=== PATIENT | male | born 1965 | race Caucasian/White ===

== ENCOUNTER 2020-02-27 18:26 | Inpatient (IN) | payer BC, OTHER ==
[~2020-02-27] VITALS: Ht 180.3 cm; Wt 123.8 kg
[2020-02-27 19:20] VITALS: BP_SYST 146
--- NOTE | 2020-02-27 19:20 | NUR ---
PT TO REMAIN IN TENT FOR EVALUATION DUE TO NO ER BEDS BEING AVAILABLE
--- NOTE | 2020-02-27 19:48 | NUR ---
DR. DIAZ TO TENT TO EVALUATE PT STATUS
[2020-02-27] MEDS ORDERED: KETOROLAC TROMETHAMINE 30 MG VIAL IM ONE (20:00)
--- NOTE | 2020-02-27 20:04 | NUR ---
PT MOVED TO FAST TRACK 2
[2020-02-27] MEDS ORDERED: KETOROLAC TROMETHAMINE 30 MG VIAL ONE (20:12)
--- NOTE | 2020-02-27 20:15 | NUR ---
LAB AT BEDSIDE TO DRAW LABS
[2020-02-27 20:36] LABS: BASOPHILS # (AUTO) 0.1 K/uL (0.0-0.2); BASOPHILS % (AUTO) 0.7 % (0.0-2.0); EOSINOPHILS # (AUTO) 0.5 K/uL (0.0-0.4); EOSINOPHILS % (AUTO) 3.7 % (0.0-4.0); HEMATOCRIT 43.5 % (36-54); HEMOGLOBIN 15.3 g/dL (14.0-18.0); LYMPHOCYTES # (AUTO) 1.8 K/uL (1.0-5.5); LYMPHOCYTES % (AUTO) 14.4 % (20.5-51.5); MEAN CORPUSCULAR HEMOGLOBIN 33 pg (27-31); MEAN CORPUSCULAR HGB CONC 35 % (32-36); MEAN CORPUSCULAR VOLUME 93 fL (79.0-98.0); MONOCYTES # (AUTO) 1.1 K/uL (0.0-1.0); NEUTROPHILS # (AUTO) 9.2 K/uL (1.8-7.7); NEUTROPHILS % (AUTO) 72.2 % (40.0-70.0); PLATELET COUNT (AUTO) 374 K/uL (130-430); RED BLOOD CELL COUNT(AUTO) 4.69 MIL/uL (4.2-6.2); RED CELL DISTRIBUTION WIDTH 13.1 % (9.0-15.0); WHITE BLOOD COUNT (AUTO) 12.7 K/uL (4.8-10.8)
[2020-02-27 21:01] LABS: CALCIUM 9.6 mg/dL (8.4-11.0); CREATININE 1.05 mg/dL (0.55-1.30); POTASSIUM 3.5 mmol/L (3.5-5.1)
[2020-02-27 21:07] LABS: TOTAL BILIRUBIN 3.3 mg/dL (0.0-1.0)
[2020-02-27] MEDS ORDERED: ONDANSETRON HCL 4 MG/2 ML VIAL IVP ONE (21:30)
[2020-02-27] MEDS ORDERED: NACL 0.9% 2,000 ML IV ONE (21:30)
[2020-02-27] MEDS ORDERED: NACL 0.9% 1,000 ML IV ONE (21:30)
[2020-02-27] MEDS ORDERED: MORPHINE 4 MG/ML INJ. SYRINGE IVP ONE (21:30)
[2020-02-27] MEDS ORDERED: cefTRIAXone 1 GM in D5W 50 ML IV ONE (21:45)
[2020-02-27] MEDS ORDERED: cefTRIAXone 1 GM VIAL ONE (22:05)
[2020-02-27] MEDS ORDERED: MORPHINE 4 MG/ML INJ. SYRINGE ONE (22:05)
[2020-02-27] MEDS ORDERED: D5NS 1,000 ML IV SCH (22:45)
--- NOTE | 2020-02-27 22:46 | NUR ---
Patient will be admitted to care of [facility]. Admitted to M/S unit. Will go to room 100A. Belongings list completed. Complete and up to date summary report printed. SBAR report to be given at bedside with opportunity for questions.
[2020-02-27 22:55] LABS: INR 0.9 (0.80-1.20); PROTHROMBIN TIME 9.5 SECS (9.5-12.5)
[2020-02-27] MEDS ORDERED: FAMO20TA8 PO (23:48)
[2020-02-27] MEDS ORDERED: IMIP25TA6 PO (23:48)
[2020-02-27] MEDS ORDERED: LEVO112T2 PO (23:48)
[2020-02-27] MEDS ORDERED: HYDR50TA3 PO (23:48)
[2020-02-27] MEDS ORDERED: LISI40TA4 PO (23:48)
[2020-02-28] MEDS ORDERED: D5/0.45 NS 1,000 ML IV SCH (00:30)
[2020-02-28] MEDS ORDERED: NALOXONE HCL 0.4 MG/ML AMP (NARCAN) IVP PRN (00:30)
[2020-02-28] MEDS ORDERED: MORPHINE 2 MG/ML INJ. SYRINGE IVP PRN (00:30)
[2020-02-28 01:00] VITALS: BP_SYST 133
--- NOTE | 2020-02-28 01:00 | NUR ---
pt.admit via er dept.report via telephone.pt.received in stable status.admit dx;pancreatitis.pt.received the administration morphine/zofran p/t arrival@unit.pt.presents v/s stable status values w/in normal limits.pt.oriented to room.pt.presents iv access lock. pt.had received the administration ns/rocephin b/cx drawn p/t to the administration of rocephin.diet status:npo.apprised pt.of the designation;npo;definition.pt.apprised of primary md;alicia,consult;gi;kenny.call light/telephone placed w/in access of the pt.
[2020-02-28] MEDS: FAMOTIDINE PF 20 MG/2 ML VIAL IVP SCH (03:00)
--- NOTE | 2020-02-28 03:00 | NUR ---
i have initiated the administration iv fluids per md.order:d5/45 ns the original order d5/ns was re-ordered per new constituents iv fluids.i have administered medication;pain.i have administered morphine;4mg ivp.to assess the efficacy of the pain medication per pain mgx protocol. Addendum: 02/28/20 at 1841 by Yury Forte RN iv fluids administered via gravity.no iv pump available.@this hour.
[2020-02-28] MEDS: MORPHINE 4 MG/ML INJ. SYRINGE IVP PRN ×2 (03:22→16:41)
[2020-02-28 04:00] VITALS: BP_SYST 128
--- NOTE | 2020-02-28 04:50 | NUR ---
CONSULTATION PAGED/CALLED Reason for Consultation: POSS CHOLECYSTITIS Person Who was Notified: ER PAGED DOCTOR YOON PER ER SUMMARY REPORT Consulting Physician: NELSON NETTLES Warehouse Distribution Specialist Specialty: SURGERY Ordering Physician: Parul SILVEIRA
--- NOTE | 2020-02-28 04:51 | NUR ---
CONSULTATION PAGED/CALLED Reason for Consultation: PANCREATITIS Person Who was Notified: DARIAN Consulting Physician: PINKY KWON IS [employer] Manager Consultant Specialty: Ordering Physician: Parul SILVEIRA
--- NOTE | 2020-02-28 06:00 | NUR ---
pt.assessed.pt.presents quiescent affect;calm,somnolent.per flacc pain mgx pt.absent facial grimaces/body posturing.iv fluids infusing via gravity.pt's arm re-positioned to FaCILiTAtE THe IV FLUiDS FLOw.PT.capable to re-position self/ambulate.call light/telephone w/in access of the pt.
[2020-02-28 08:00] VITALS: BP_SYST 133
--- NOTE | 2020-02-28 08:00 | NUR ---
A/Ox4,vss,resting well in bed,NPO except ice,no c/o pain or discomfort for now. IVF continue infusing,needs attended,call light & personal items within pt reach safety maintained.
--- NOTE | 2020-02-28 10:00 | NUR ---
came and seen pt for GI consult.
[2020-02-28 11:03] LABS: BASOPHILS # (AUTO) 0.1 K/uL (0.0-0.2); BASOPHILS % (AUTO) 0.7 % (0.0-2.0); EOSINOPHILS # (AUTO) 0.6 K/uL (0.0-0.4); EOSINOPHILS % (AUTO) 6.4 % (0.0-4.0); HEMATOCRIT 39.4 % (36-54); HEMOGLOBIN 13.6 g/dL (14.0-18.0); LYMPHOCYTES # (AUTO) 1.6 K/uL (1.0-5.5); LYMPHOCYTES % (AUTO) 17.2 % (20.5-51.5); MEAN CORPUSCULAR HEMOGLOBIN 32 pg (27-31); MEAN CORPUSCULAR HGB CONC 35 % (32-36); MEAN CORPUSCULAR VOLUME 94 fL (79.0-98.0); MONOCYTES # (AUTO) 0.8 K/uL (0.0-1.0); NEUTROPHILS # (AUTO) 6.3 K/uL (1.8-7.7); NEUTROPHILS % (AUTO) 66.7 % (40.0-70.0); PLATELET COUNT (AUTO) 288 K/uL (130-430); RED BLOOD CELL COUNT(AUTO) 4.21 MIL/uL (4.2-6.2); WHITE BLOOD COUNT (AUTO) 9.5 K/uL (4.8-10.8)
[2020-02-28 11:09] LABS: ALBUMIN 3.2 g/dL (3.4-4.8); CALCIUM 8.4 mg/dL (8.4-11.0); CREATININE 0.95 mg/dL (0.55-1.30); POTASSIUM 4.4 mmol/L (3.5-5.1); TOTAL BILIRUBIN 1.8 mg/dL (0.0-1.0)
--- NOTE | 2020-02-28 12:00 | NUR ---
pt c/o moderate pain in abdomen,give morphine 2 mg IV as prn order for moderate pain.
--- NOTE | 2020-02-28 14:00 | NUR ---
pt sleeping well in bed,IVF continue infusing,hourly rounds made,safety maintained.
--- NOTE | 2020-02-28 16:00 | NUR ---
vss,pt resting well in bed,c/o severe pain in abdomen,give morphine 4 mg IV as prn order informed pt of lap grecia in am and obtained consent signed by pt.chest Xray & EKG done per pre-op order
[2020-02-28] MEDS: LR 1,000 ML IV SCH ×2 (17:49→21:55)
--- NOTE | 2020-02-28 18:29 | NUR ---
pt sleeping well in bed,IVF continue infusing,offered ice chips upon requests no n/v.hourly rounds made,safety maintained.
[2020-02-28] MEDS ORDERED: KETOROLAC TROMETHAMINE 30 MG VIAL IM PRN (18:45)
[2020-02-28] MEDS: KETOROLAC TROMETHAMINE 30 MG VIAL IVP PRN (19:13)
--- NOTE | 2020-02-28 19:15 | NUR ---
OPENING NOTE REPORT RECEIVED FROM DAYSHIFT NURSE. PATIENT RECEIVED LYING IN BED, AWAKE, COMPLAINING OF PAIN, PRN MEDICATION WAS JUST GIVEN BY DAYSHIFT NURSE. NO SOB, BREATHING EVEN AND UNLABORED. IVF INFUSING WELL. IV SITE PATENT, NO SIGNS OF INFILTRATION OR INFECTION NOTED. CALL LIGHT WITH PATIENT. BED IS LOCKED AND AT LOWEST POSITION. WILL CONTINUE TO MONITOR.
[2020-02-28 20:00] VITALS: BP_SYST 130
--- NOTE | 2020-02-28 21:00 | NUR ---
ROUNDS PATIENT IN BED, NO SINGS OF DISCOMFORT NOTED. DENIES PAIN AT THIS TIME. CHEST RISE AND FALL EVEN BILATERALLY. IVF INFUSING WELL. CALL LIGHT WITH PATIENT. WILL CONTINUE TO MONITOR.
--- NOTE | 2020-02-28 23:00 | NUR ---
ROUNDS PATIENT ASLEEP AT THIS TIME. NO S/S OF ACUTE DISTRESS NOTED. BREATHING EVEN AND UNLABORED. CALL LIGHT WITH PATIENT. WILL CONTINUE TO MONITOR.
[2020-02-29] VITALS: BP_SYST 138
[2020-02-29] MEDS: LR 1,000 ML IV SCH ×4 (00:20→23:40)
[2020-02-29] MEDS: FAMOTIDINE PF 20 MG/2 ML VIAL IVP SCH (00:32)
--- NOTE | 2020-02-29 01:00 | NUR ---
ROUNDS PATIENT IN BED, SLEEPING COMFORTABLY AT THIS TIME. NO S/S OF ACUTE DISTRESS NOTED. BREATHING EVEN AND UNLABORED. IVF INFUSING WELL. CALL LIGHT WITH PATIENT. WILL CONTINUE TO MONITOR.
[2020-02-29] MEDS: KETOROLAC TROMETHAMINE 30 MG VIAL IVP PRN (05:13)
[2020-02-29] MEDS: ONDANSETRON HCL 4 MG/2 ML VIAL IVP PRN (05:26)
--- NOTE | 2020-02-29 06:34 | NUR ---
CLOSING NOTE PATIENT IN BED, ASLEEP AT THIS TIME. NO S/S OF ACUTE DISTRESS NOTED. BREATHING EVEN AND UNLABORED. IVF INFUSING WELL, IV SITE IS PATENT, NO SIGNS OF INFILTRATION OR INFECTION NOTED. ALL NEEDS MET THROUGHOUT SHIFT. FALL AND SAFETY PRECAUTIONS MAINTAINED THROUGHOUT SHIFT. WILL CONTINUE TO MONITOR UNTIL PATIENT CARE IS ENDORSED TO ONCOMING DAYSHIFT NURSE.
[2020-02-29 07:11] VITALS: BP_SYST 144
--- NOTE | 2020-02-29 08:15 | NUR ---
To OR for lap cholecystectomy pre operative checklist completed , endorsed to OR/RN
[2020-02-29] MEDS ORDERED: HYDROmorphone 1 MG INJ. 1 MG/ML AMPUL IM PRN (10:30)
[2020-02-29] MEDS ORDERED: HYDROcodone/ACETAMIN 5-325 MG TAB (NORCO/ VICODIN) PO PRN ×2 (10:30→13:45)
[2020-02-29 11:40] VITALS: BP_SYST 143
--- NOTE | 2020-02-29 11:40 | NUR ---
From PACU after laparoscopic cholecystectomy under GA , Patient awake but sleepy kept on 3 liters/nc vitals sign monitored , physical assessment done ., safety/fall precaution initiated,denies any pain.
[2020-02-29 11:54] LABS: BILIRUBIN,URINE 3+ (NEGATIVE); BLOOD, URINE NEGATIVE (NEGATIVE); CLARITY/URINE CLEAR (CLEAR); COLOR,URINE BROWN (YELLOW); GLUCOSE,URINE TRACE (NEGATIVE); KETONES,URINE TRACE (NEGATIVE); LEUKOCYTE ESTERASE ,URINE NEGATIVE (NEGATIVE); NITRITE, URINE NEGATIVE (NEGATIVE); PH,URINE 6.5 (5.0-8.0); PROTEIN URINE NEGATIVE (NEGATIVE)
[2020-02-29 12:02] LABS: UROBILINOGEN,URINE >=8 (0.2-1.0)
[2020-02-29 12:23] LABS: BACTERIA,URINE None Seen /HPF (None Seen); MUCUS,URINE 1+ /LPF (None Seen); RBC,URINE 0-3 /HPF (0-3); WBC,URINE 0-3 /HPF (0-3)
--- NOTE | 2020-02-29 12:38 | NUR ---
Patient awake/alert full liquid served tolerates well.
[2020-02-29] MEDS ORDERED: ACETAMINOPHEN 325 MG TABLET PO PRN (13:45)
[2020-02-29] MEDS ORDERED: NALOXONE HCL 0.4 MG/ML AMP (NARCAN) IVP PRN ×3 (13:45)
[2020-02-29 16:06] VITALS: BP_SYST 138
--- NOTE | 2020-02-29 17:30 | NUR ---
Patient has a good bowel sound passing gas as verbalized , able to urinate after surgery no dysuria, tolerating full liquid diet well.
--- NOTE | 2020-02-29 19:15 | NUR ---
OPENING NOTE REPORT RECEIVED FROM DAYSHIFT NURSE. PATIENT RECEIVED LYING IN BED, RESTING, NO S/S OF ACUTE DISTRESS NOTED. BREATHING EVEN AND UNLABORED. IVF INFUSING WELL. IV SITE PATENT, NO SIGNS OF INFILTRATION OR INFECTION NOTED. CALL LIGHT WITH PATIENT. BED IS LOCKED AND AT LOWEST POSITION. WILL CONTINUE TO MONITOR.
[2020-02-29 20:00] VITALS: BP_SYST 141
[2020-02-29] MEDS: MORPHINE 2 MG/ML INJ. SYRINGE IVP PRN (20:11)
[2020-03-01] VITALS: BP_SYST 134
[2020-03-01] MEDS: FAMOTIDINE PF 20 MG/2 ML VIAL IVP SCH ×2 (00:39→23:54)
[2020-03-01] MEDS: MORPHINE 2 MG/ML INJ. SYRINGE IVP PRN ×2 (00:39→06:03)
[2020-03-01] MEDS: ONDANSETRON HCL 4 MG/2 ML VIAL IVP PRN ×3 (06:09→20:42)
--- NOTE | 2020-03-01 07:09 | NUR ---
CLOSING NOTE PATIENT IN BED, SLEEPING AT THIS TIME. NO S/S OF ACUTE DISTRESS NOTED. BREATHING EVEN AND UNLABORED. HOB RAISED. IVF INFUSING WELL, IV SITE PATENT, NO SIGNS OF INFILTRATION OR INFECTION NOTED. ALL NEEDS MET. NO SIGNS OF ACTIVE BLEEDING NOTED. FALL AND SAFETY PRECAUTION MAINTAINED THROUGHOUT SHIFT. WILL CONTINUE TO MONITOR UNTIL PATIENT CARE IS ENDORSED TO ONCOMING DAYSHIFT NURSE.
[2020-03-01 08:01] VITALS: BP_SYST 146
[2020-03-01] MEDS: HYDROcodone/ACETAMIN 10-325 MG TAB PO PRN ×3 (08:07→20:42)
[2020-03-01 08:20] LABS: ALBUMIN 2.8 g/dL (3.4-4.8); CALCIUM 8.5 mg/dL (8.4-11.0); CREATININE 0.82 mg/dL (0.55-1.30); POTASSIUM 3.3 mmol/L (3.5-5.1); TOTAL BILIRUBIN 6.4 mg/dL (0.0-1.0)
[2020-03-01 08:24] LABS: BASOPHILS # (AUTO) 0.1 K/uL (0.0-0.2); BASOPHILS % (AUTO) 1.3 % (0.0-2.0); EOSINOPHILS # (AUTO) 0.2 K/uL (0.0-0.4); EOSINOPHILS % (AUTO) 2.4 % (0.0-4.0); HEMATOCRIT 35.3 % (36-54); HEMOGLOBIN 12.3 g/dL (14.0-18.0); LYMPHOCYTES # (AUTO) 1.2 K/uL (1.0-5.5); LYMPHOCYTES % (AUTO) 12.5 % (20.5-51.5); MEAN CORPUSCULAR HEMOGLOBIN 33 pg (27-31); MEAN CORPUSCULAR HGB CONC 35 % (32-36); MEAN CORPUSCULAR VOLUME 94 fL (79.0-98.0); MONOCYTES # (AUTO) 1.1 K/uL (0.0-1.0); MONOCYTES % (AUTO) 11.6 % (1.7-9.3); NEUTROPHILS # (AUTO) 6.8 K/uL (1.8-7.7); NEUTROPHILS % (AUTO) 72.2 % (40.0-70.0); PLATELET COUNT (AUTO) 260 K/uL (130-430); RED BLOOD CELL COUNT(AUTO) 3.75 MIL/uL (4.2-6.2); RED CELL DISTRIBUTION WIDTH 13.4 % (9.0-15.0); WHITE BLOOD COUNT (AUTO) 9.4 K/uL (4.8-10.8)
[2020-03-01] MEDS: LR 1,000 ML IV SCH ×2 (10:00→23:32)
--- NOTE | 2020-03-01 11:38 | NUR ---
Nutrition Update Musa Scale 15 noted. Pt admitted for pancreatitis. Diet: full liquid and NPO (2 active, separate diet orders) BMI: 38.1 kg/m2 RD to follow per nutrition care standards.
[2020-03-01 12:03] VITALS: BP_SYST 155
--- NOTE | 2020-03-01 12:19 | NUR ---
Patient is nauseated and complaining of abdominal due meds given will monitor.
[2020-03-01] MEDS ORDERED: POTASSIUM CHLORIDE 20 MEQ TAB.PRT.SR PO ONE (14:30)
--- NOTE | 2020-03-01 17:57 | NUR ---
Dietitian Recommendations * Consider advance diet if/when medically appropriate (clear liquid diet) THAO, RD Please refer to Nutrition Assessment for details. Addendum: 03/01/20 at [address] Amended: Links added.
--- NOTE | 2020-03-01 19:05 | NUR ---
Report received from day shift nurse.
[2020-03-01 20:00] VITALS: BP_SYST 152
--- NOTE | 2020-03-01 20:42 | NUR ---
Moriah 10/325mg 1 tablet was given po for c/o 09/05 abdominal pain. Pt declined bed alarm. Pt was instructed to call for assistance before getting out of bed if he feels dizzy or drowsy and pt verbalized understanding. Addendum: 03/02/20 at 0008 by Reva Sargent RN Pt was instructed on nothing by mouth after midnight for ERCP tomorrow and pt verbalized understanding.
--- NOTE | 2020-03-01 21:30 | NUR ---
Pt ambulated to the bathroom to urinate and back to bed with steady gait. No c/o pain or discomfort. IVF is infusing well in LFA.
[2020-03-01] MEDS: LORazepam 2 MG/ML VIAL IVP PRN (23:57)
--- NOTE | 2020-03-01 23:57 | NUR ---
Ativan 1mg was given IV per pt's request for c/o anxiety. Pt declined bed alarm. Pt was instructed to call for assistance before getting out of bed if he feels dizzy or drowsy and pt verbalized understanding. Call light is with pt and bed is in the lowest/locked positions. IVF is infusing well in LFA. Pt was reminded of nothing by mouth after midnight and pt verbalized understanding.
[2020-03-02] VITALS: BP_SYST 130; BP_SYST 158
[2020-03-02] MEDS: ONDANSETRON HCL 4 MG/2 ML VIAL IVP PRN (01:46)
[2020-03-02] MEDS: MORPHINE 2 MG/ML INJ. SYRINGE IVP PRN (01:48)
--- NOTE | 2020-03-02 01:48 | NUR ---
Morphine 2mg and Zofran 4mg given IV for c/o 7/10 abdominal pain and nausea. Pt declined bed alarm. Pt was instructed to call for assistance before getting out of bed if he feels dizzy or drowsy and pt verbalized understanding. Call light is with pt and bed is in the lowest/locked positions.
--- NOTE | 2020-03-02 04:30 | NUR ---
Pt is sleeping comfortably in bed. IVF is infusing well without any signs of infiltration. Fall and safety precautions are in place.
[2020-03-02 07:15] LABS: INR 0.9 (0.80-1.20); PROTHROMBIN TIME 9.7 SECS (9.5-12.5)
[2020-03-02 07:16] LABS: BASOPHILS # (AUTO) 0.1 K/uL (0.0-0.2); BASOPHILS % (AUTO) 1.1 % (0.0-2.0); EOSINOPHILS # (AUTO) 0.3 K/uL (0.0-0.4); EOSINOPHILS % (AUTO) 4.8 % (0.0-4.0); HEMATOCRIT 34.3 % (36-54); HEMOGLOBIN 12.2 g/dL (14.0-18.0); LYMPHOCYTES # (AUTO) 1.6 K/uL (1.0-5.5); LYMPHOCYTES % (AUTO) 23.6 % (20.5-51.5); MEAN CORPUSCULAR HEMOGLOBIN 33 pg (27-31); MEAN CORPUSCULAR HGB CONC 35 % (32-36); MEAN CORPUSCULAR VOLUME 93 fL (79.0-98.0); MONOCYTES # (AUTO) 0.7 K/uL (0.0-1.0); MONOCYTES % (AUTO) 10.3 % (1.7-9.3); NEUTROPHILS % (AUTO) 60.2 % (40.0-70.0); PLATELET COUNT (AUTO) 270 K/uL (130-430); RED BLOOD CELL COUNT(AUTO) 3.68 MIL/uL (4.2-6.2); RED CELL DISTRIBUTION WIDTH 13.4 % (9.0-15.0); WHITE BLOOD COUNT (AUTO) 6.6 K/uL (4.8-10.8)
[2020-03-02 07:30] VITALS: BP_SYST 155
--- NOTE | 2020-03-02 07:30 | NUR ---
Initial notes pt in bed. Awake and oriented. Denies any pain or shortness of breath. Denies any nausea or vomiting. Keep NPO for procedure. IV is infusing well. Ambulated to bathroom. Call light in reach. Encouraged to call for help as needed.
[2020-03-02 07:44] LABS: ALBUMIN 2.7 g/dL (3.4-4.8); CALCIUM 8.5 mg/dL (8.4-11.0); CREATININE 0.78 mg/dL (0.55-1.30); POTASSIUM 3.3 mmol/L (3.5-5.1); TOTAL BILIRUBIN 6.8 mg/dL (0.0-1.0)
[2020-03-02] MEDS: LR 1,000 ML IV SCH ×2 (08:00→15:40)
--- NOTE | 2020-03-02 08:00 | NUR ---
Pt went to OR.
[2020-03-02] MEDS ORDERED: hydrALAZINE HCL 20 MG/ML VIAL IVP PRN (09:00)
[2020-03-02] MEDS ORDERED: LR 1,000 ML IV SCH (09:00)
[2020-03-02] MEDS ORDERED: MIDAZOLAM HCL 2 MG/2 ML VIAL (VERSED) IVP PRN (09:00)
[2020-03-02] MEDS ORDERED: LABETALOL 100 MG/ 20ML VIAL IVP PRN (09:00)
[2020-03-02] MEDS ORDERED: HYDROmorphone 1 MG INJ. 1 MG/ML AMPUL IVP PRN ×2 (09:00)
[2020-03-02] MEDS ORDERED: METOCLOPRAMIDE HCL 10 MG/2 ML VIAL IVP PRN (09:00)
[2020-03-02] MEDS ORDERED: ONDANSETRON HCL 4 MG/2 ML VIAL IVP PRN (09:00)
[2020-03-02] MEDS ORDERED: MEPERIDINE HCL/PF 25 MG/ML DISP.SYRIN IVP PRN (09:00)
--- NOTE | 2020-03-02 11:35 | NUR ---
Patient came back from surgery. Status post ERCP. Awake and alert. Pain is controlled at this time. Provided ice chips as requested. Will monitor.
[2020-03-02 12:06] VITALS: BP_SYST 151
[2020-03-02] MEDS: HYDROcodone/ACETAMIN 10-325 MG TAB PO PRN ×2 (13:28→17:55)
[2020-03-02 14:05] VITALS: BP_SYST 143
--- NOTE | 2020-03-02 15:28 | NUR ---
Pain is controlled in bed watching tv. No nausea or vomiting. Tolerated clear liquid diet.
[2020-03-02 16:00] VITALS: BP_SYST 152
[2020-03-02] MEDS ORDERED: POTASSIUM CHLORIDE 20 MEQ TAB.PRT.SR PO ONE (17:15)
[2020-03-02] MEDS ORDERED: DEXTROMET/BENZOCAIN/MENTHOL SF 1 LOZENGE MM PRN (17:15)
--- NOTE | 2020-03-02 18:32 | NUR ---
notes- Eating dinner, pain is controlled. ivf infusing well. will endorse
[2020-03-02 20:00] VITALS: BP_SYST 139
[2020-03-03] MEDS: FAMOTIDINE PF 20 MG/2 ML VIAL IVP SCH (00:27)
[2020-03-03] MEDS: MORPHINE 2 MG/ML INJ. SYRINGE IVP PRN (00:39)
[2020-03-03] MEDS: LR 1,000 ML IV SCH ×2 (01:40→08:45)
[2020-03-03] MEDS: LORazepam 2 MG/ML VIAL IVP PRN (02:37)
[2020-03-03 07:25] LABS: BASOPHILS # (AUTO) 0.1 K/uL (0.0-0.2); BASOPHILS % (AUTO) 0.9 % (0.0-2.0); EOSINOPHILS # (AUTO) 0.3 K/uL (0.0-0.4); EOSINOPHILS % (AUTO) 2.9 % (0.0-4.0); HEMATOCRIT 35.5 % (36-54); HEMOGLOBIN 12.4 g/dL (14.0-18.0); LYMPHOCYTES # (AUTO) 2.4 K/uL (1.0-5.5); LYMPHOCYTES % (AUTO) 26.5 % (20.5-51.5); MEAN CORPUSCULAR HEMOGLOBIN 33 pg (27-31); MEAN CORPUSCULAR HGB CONC 35 % (32-36); MEAN CORPUSCULAR VOLUME 93 fL (79.0-98.0); MONOCYTES # (AUTO) 0.9 K/uL (0.0-1.0); MONOCYTES % (AUTO) 9.6 % (1.7-9.3); NEUTROPHILS # (AUTO) 5.4 K/uL (1.8-7.7); NEUTROPHILS % (AUTO) 60.1 % (40.0-70.0); PLATELET COUNT (AUTO) 316 K/uL (130-430); RED BLOOD CELL COUNT(AUTO) 3.81 MIL/uL (4.2-6.2); RED CELL DISTRIBUTION WIDTH 13.6 % (9.0-15.0)
[2020-03-03 07:44] LABS: ALBUMIN 2.8 g/dL (3.4-4.8); CALCIUM 8.6 mg/dL (8.4-11.0); CREATININE 0.91 mg/dL (0.55-1.30); POTASSIUM 3.3 mmol/L (3.5-5.1); TOTAL BILIRUBIN 2.8 mg/dL (0.0-1.0)
[2020-03-03 08:00] VITALS: BP_SYST 168
--- NOTE | 2020-03-03 08:00 | NUR ---
OPENING NOTES: PATIENT ALERT, ORIENTED X4. ABLE TO MAKE NEEDS KNOWN. AMBULATES WITH STEADY GAIT. 0N R00M AIR. DENIES CHEST PAIN. CALL LIGHT WITHIN EASY REACH. BED IN L0WEST [id number].
[2020-03-03] MEDS: HYDROcodone/ACETAMIN 10-325 MG TAB PO PRN (08:46)
--- NOTE | 2020-03-03 10:00 | NUR ---
PATIENT ASLEEP AT T HIS TIME. EASY TO AROUSE. ROOM AIR. NO SIGN OF DISTRESS NOTED.
--- NOTE | 2020-03-03 12:00 | NUR ---
PATIENT DENIES PAIN AT THIS TIME. RESTING QUIETLY IN BED.
[2020-03-03 14:23] VITALS: BP_SYST 141
--- NOTE | 2020-03-03 15:36 | NUR ---
DR. SILVEIRA INFORMED OF POTASSIUM LEVEL OF 3.3 AND PATIENT ON FULL LIQUID DIET. NO NEW ORDER AT THIS TIME.
[2020-03-03] MEDS ORDERED: POTASSIUM CHLORIDE 20 MEQ TAB.PRT.SR PO ONE (15:45)
[2020-03-03] MEDS ORDERED: IBUP-1970 PO (15:46)
[2020-03-03 16:56] VITALS: BP_SYST 168
--- NOTE | 2020-03-03 17:19 | NUR ---
PATIENT GIVEN DISCHARGE EDUCATION, TO FOLLOW UP WITH DR SILVEIRA IN ONE WEEK , NOT TO SCRUB SURGICAL INCISION SITES. PATIENT TAUGHT SIGNS AND SYMPTOMS OF WORSENING CONDITIONS TO REPORT. IV ACCESS TO BILATERAL HANDS DISCONTINUED, TIPS INTACT, NO BLEEDING NOTED. PATIENT VERBALIZED UNDERSTANDING OF ALL DISCHARGE INSTRUCTIONS. PATIENT GIVEN MEDICATION PRESCRIPTIONS AND ALL BELONGINGS INCLUDING CELLPHONE AND EYEGLASSES. PATIENT LEFT UNIT VIA WHEELCHAIR BY THIS NURSE TO [employer] AND RECEIVING MATERIAL HANDLER RIDE )GAYLE ALLEN)
== END 2020-03-03 17:15 | disposition home or self-care (01) | DRG 417 ==
LOC: SED 18:26 → SMU 22:41
PROVIDERS: ADMIT Preventive Medicine Preventive Medicine/Occupational Environmental Medicine; ATTEND Preventive Medicine Preventive Medicine/Occupational Environmental Medicine
PROC: BF121ZZ Fluoroscopy of Gallbladder using Low Osmolar Contrast (ICD-10-PCS; 2020-02-29)
PROC: 0FT44ZZ Resection of Gallbladder, Percutaneous Endoscopic Approach (ICD-10-PCS; principal; 2020-02-29 07:00)
PROC: 0FC98ZZ Extirpation of Matter from Common Bile Duct, Via Natural or Artificial Opening Endoscopic (ICD-10-PCS; 2020-03-02)
DX: K80.61 Calculus of gallbladder and bile duct with cholecystitis, unspecified, with obstruction (principal); K85.10 Biliary acute pancreatitis without necrosis or infection; K85.90 Acute pancreatitis without necrosis or infection, unspecified; E78.5 Hyperlipidemia, unspecified; I10 Essential (primary) hypertension; R73.9 Hyperglycemia, unspecified; E66.9 Obesity, unspecified; E88.09 Other disorders of plasma-protein metabolism, not elsewhere classified; E80.6 Other disorders of bilirubin metabolism; D64.9 Anemia, unspecified; E87.6 Hypokalemia; E87.5 Hyperkalemia; E89.0 Postprocedural hypothyroidism; Z20.828 Contact with and (suspected) exposure to other viral communicable diseases; F12.10 Cannabis abuse, uncomplicated; K21.9 Gastro-esophageal reflux disease without esophagitis; K66.0 Peritoneal adhesions (postprocedural) (postinfection); Z90.49 Acquired absence of other specified parts of digestive tract; Z98.1 Arthrodesis status; Z68.38 Body mass index [BMI] 38.0-38.9, adult
CPT/HCPCS: 36415; 71045; 74330-TC; 76000; 76376; 76700-TC; 80053; 81000-TC; 82150-TC; 83605; 83690-TC; 85025; 85610-TC; 85730-TC; 86886; 86900; 86901; 87040-TC; 87081; 88304; 88305; 93005; 96361; 96365; 96372; 96375; 99285; C1727; C1769; J0696; J1885; J2060; J2270; J2405; J3490; J7120; Q9967